=== PATIENT | male | born 2005 | race Caucasian/White ===

== ENCOUNTER 2023-02-28 19:38 | Emergency (ER) | payer OTHER ==
[~2023-02-28] VITALS: Ht 172.7 cm; Wt 65.0 kg
[2023-02-28 19:45] VITALS: BP 130/81; PULSE 94; RESP 16; TEMP 98.1; O2SAT 98
[2023-02-28] MEDS ORDERED: IBUP-2028 MT (21:37)
== END 2023-02-28 23:03 | disposition home or self-care (01) ==
LOC: ER 19:38
DX: S09.8XXA Other specified injuries of head, initial encounter (principal); X58.XXXA Exposure to other specified factors, initial encounter; Y93.89 Activity, other specified; Y92.89 Other specified places as the place of occurrence of the external cause; Y99.8 Other external cause status
CPT/HCPCS: 99283